=== PATIENT | female | born 1995 | race Two or more races ===

== ENCOUNTER 2020-12-17 20:03 | Emergency (ER) | payer MEDICAID, OTHER ==
[~2020-12-17] VITALS: Ht 152.4 cm; Wt 77.1 kg
[2020-12-18 04:02] VITALS: BP 136/91
== END 2020-12-18 04:06 | disposition home or self-care (01) ==
LOC: ER 20:05
DX: G43.909 Migraine, unspecified, not intractable, without status migrainosus (principal)
CPT/HCPCS: 70450; 81025

== ENCOUNTER 2021-03-21 00:51 | Emergency (ER) | payer MEDICAID ==
[~2021-03-21] VITALS: Ht 152.4 cm; Wt 74.8 kg
[2021-03-21 00:57] VITALS: BP 122/67
[2021-03-21 02:02] LABS: Basophils # (auto) 0 10 ^3/uL (0-0.2); Basophils % (auto) 0.4 % (0.0-2.0); Eosinophils # (auto) 0.2 10 ^3/uL (0-0.8); Hemoglobin 11.7 g/dL (12.2-16.2); Lymphocytes # (auto) 4.7 10 ^3/uL (0.4-5.4); Monocytes % (auto) 5.3 % (0.0-12.0)
[2021-03-21 02:05] LABS: Eosinophils % (auto) 2.2 % (0.0-7.0); Hematocrit 35.3 % (36.0-46.0); Lymphocytes % (auto) 45.3 % (10.0-50.0); Mean Corpuscular Hemoglobin 25.5 pg (28.0-32.0); Mean Corpuscular Hgb Conc. 33.1 g/dL (32.0-36.0); Monocytes # (auto) 0.5 10 ^3/uL (0-1.3); Neutrophils # (auto) 4.8 10 ^3/uL (1.6-8.6); Neutrophils % (auto) 46.8 % (37.0-80.0); Red Blood Cells 4.59 10^6/uL (4.0-5.20); Red Cell Distribution Width 16.6 % (11.8-14.3); White Blood Cell 10.3 10^3/uL (4.4-10.8)
[2021-03-21 02:17] LABS: Calcium 8.7 mg/dL (8.5-10.1); Potassium 3.4 mmol/L (3.5-5.1)
[2021-03-21 02:20] LABS: Albumin 3.8 g/dL (3.4-5.0)
[2021-03-21 02:23] LABS: Bilirubin, Total 0.2 mg/dL (0.2-1.0); Total Protein 8.1 g/dL (6.4-8.2)
[2021-03-21] MEDS ORDERED: POTASSIUM CHL 20 Meq TABLET PO ONE (02:30)
== END 2021-03-21 01:23 | disposition left against medical advice (07) ==
LOC: ER 00:51
DX: R10.2 Pelvic and perineal pain (principal)
CPT/HCPCS: 36415; 80053; 82150; 83690; 84702; 85025

== ENCOUNTER 2021-12-24 10:30 | Emergency (ER) | payer MEDICAID ==
[~2021-12-24] VITALS: Ht 152.4 cm; Wt 78.9 kg
[2021-12-24 11:03] VITALS: BP 122/82
[2021-12-24 11:15] LABS: Urine Bacteria FEW /hpf (None Seen); Urine Blood TRACE /uL (Negative); Urine Specific Gravity 1.007 (1.001-1.035); Urine WBC 116 /hpf (0 - 5)
[2021-12-24] MEDS ORDERED: cefTRIAXone SOD 1,000 MG VL IM ONE (11:30)
[2021-12-24] MEDS ORDERED: KETOROLAC TROMETH 60MG/2ML VIAL IM ONE (11:30)
[2021-12-24] MEDS ORDERED: IBUP800T27 PO (11:34)
[2021-12-24] MEDS ORDERED: CIPR-173 PO (11:34)
== END 2021-12-24 11:51 | disposition home or self-care (01) ==
LOC: ER 10:30
DX: N39.0 Urinary tract infection, site not specified (principal)
CPT/HCPCS: 81001; 81025; 96372; 99284; J0696; J1885